=== PATIENT | female | born 2005 | race Caucasian/White ===

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

== ENCOUNTER 2024-06-19 20:02 | Emergency (ER) | payer OTHER ==
[~2024-06-19] VITALS: Ht 162.6 cm; Wt 60.0 kg
[~2024-06-19 20:02] MED LIST: FAMO-135 MT; ONDA4TAB11 PO
[2024-06-19 20:18] VITALS: BP 108/68; PULSE 72; RESP 20; TEMP 98.1; O2SAT 100
[2024-06-19 20:41] LABS: BASOPHILS % 0.2 % (0.0-2.0); EOSINOPHILS % 0.6 % (0.0-5.0); HEMATOCRIT. 37.1 % (36.0-48.0); HEMOGLOBIN. 12.4 g/dL (12.0-16.0); LYMPHOCYTES % 28.7 % (20.0-50.0); MEAN CORPUSCULAR HEMOGLOBIN 30.5 pg (28.0-32.0); MEAN CORPUSCULAR HGB CONC 33.4 g/dL (31.0-37.0); MEAN CORPUSCULAR VOLUME 91.2 fL (81.0-99.0); MEAN PLATELET VOLUME 9.6 fl (7.4-10.4); MONOCYTES % 8.3 % (2.0-8.0); NEUTROPHILS % 62.2 % (40.0-76.0); PLATELET 202 x1000/uL (130-400); RED BLOOD CELL COUNT 4.06 mill/uL (4.2-5.4); RED CELL DISTRIBUTION WIDTH 13.6 % (11.6-14.6); WHITE BLOOD COUNT 6.8 x1000/uL (4.5-11.0)
[2024-06-19 20:44] LABS: CHLORIDE 109 mEq/L (98-107); POTASSIUM 3.6 mEq/L (3.5-5.1); SODIUM 140 mEq/L (136-145)
[2024-06-19 20:45] LABS: CARBON DIOXIDE 25 mEq/L (21-32)
[2024-06-19 20:46] LABS: CALCIUM 9.7 mg/dL (8.7-10.4)
[2024-06-19 20:48] LABS: HCG SCREEN NEGATIVE
[2024-06-19 20:50] LABS: CREATININE 0.9 mg/dL (0.6-1.0); GLUCOSE 106 mg/dL (70-105); UREA NITROGEN BLOOD 15 mg/dL (9-23)
[2024-06-19 21:06] LABS: CLARITY URINE CLEAR (CLEAR); COLOR URINE YELLOW (YELLOW); GLUCOSE URINE NEGATIVE (NEGATIVE); KETONES URINE NEGATIVE (NEGATIVE); LEUKOCYTE ESTERASE URINE 2+ (NEGATIVE); NITRITE URINE NEGATIVE (NEGATIVE); OCCULT BLOOD URINE 2+ (NEGATIVE); PROTEIN URINE 1+ (NEGATIVE); SPECIFIC GRAVITY URINE 1.025 (1.005-1.030)
[2024-06-19 21:12] LABS: UCG KIT LOT# 840181; UCG SCREEN NEGATIVE
[2024-06-19 21:16] LABS: BACTERIA URINE 1+; RBC URINE 15-25 /hpf (0-2); SQUAMOUS EPITHELIAL CELL URINE FEW /lpf (RARE/1+); WBC URINE 15-25 /hpf (0-2)
[2024-06-19] MEDS: CEFTRIAXONE SODIUM 500MG VIAL IM ONE (21:43)
[2024-06-19] MEDS ORDERED: DOXY100C5 MT (21:53)
[2024-06-19] MEDS ORDERED: CEPH500C2 MT (21:53)
[2024-06-22 04:09] LABS: CHLAMYDIA TRACHOMATIS NAA Positive (Negative); NEISSERIA GONORRHOEAE NAA Negative (Negative)
== END 2024-06-19 22:10 | disposition home or self-care (01) ==
LOC: ER 20:02
DX: A64 Unspecified sexually transmitted disease (principal); N39.0 Urinary tract infection, site not specified; J45.909 Unspecified asthma, uncomplicated; Z98.890 Other specified postprocedural states
CPT/HCPCS: 99283; 87491; 87591; 80048; 81003; 81025; 84703; 85025; 86850; 86900; 86901; 87086; 87186; 87077; 36415; 96372; J0696

== ENCOUNTER 2025-03-13 01:03 | Emergency (ER) | payer OTHER ==
[~2025-03-13] VITALS: Ht 160 cm; Wt 60.0 kg
[~2025-03-13 01:03] MED LIST changes: +CEPH500C2 MT; +DOXY100C5 MT; +ONDA-239 PO; -ONDA4TAB11 PO
[2025-03-13 01:08] VITALS: O2SAT 100
[2025-03-13 01:10] VITALS: TEMP 37.1; O2SAT 100
[2025-03-13] MEDS: DIAZEPAM 5 MG TABLET PO ONE (04:12)
[2025-03-13 04:13] VITALS: BP 118/70; PULSE 90; RESP 16
[2025-03-13] MEDS: DEXAMETHASONE 10 MG/ML VIAL PO ONE (04:13)
[2025-03-13] MEDS: KETOROLAC 30MG/ML VIAL IM ONE (04:13)
[2025-03-13] MEDS ORDERED: NAPR220C61 MT (04:50)
[2025-03-13] MEDS ORDERED: CYCL10TA21 MT (04:50)
== END 2025-03-13 05:21 | disposition home or self-care (01) ==
LOC: ER 01:03
DX: M54.50 Low back pain, unspecified (principal); Z90.49 Acquired absence of other specified parts of digestive tract; Z79.899 Other long term (current) drug therapy
CPT/HCPCS: 81025; 96372; 99283; J1100; J1885; Z7610